=== PATIENT | female | born 1965 | race American Indian/Alaskan Native ===

== ENCOUNTER 2019-04-17 22:41 | Emergency (ER) | payer SELFPAY ==
[2019-04-17 22:57] VITALS: BP 128/83
--- NOTE | 2019-04-17 23:40 | Emergency Department Report ---
ED Lower Extremity HPI - General Chief Complaint: Extremity Injury, Lower Stated Complaint: ANKLE/FOOT PAIN Time Seen by Provider: 04/17/19 23:24 Source: patient Mode of arrival: Ambulatory Limitations: No Limitations - History of Present Illness Initial Comments: 53-year-old female presents to ED with possible left ankle sprain, sustained yesterday at work. 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 MD Complaint: ankle injury -: days(s) (1) Injury: Ankle: Left Place: work Severity: mild Worsens With: weight bearing, movement, palpation Associated Symptoms: ambulatory. denies: swelling Treatments Prior to Arrival: other (tylenol) - Related Data Previous Rx's Medication Instructions Recorded Last Taken Type Naproxen [Naprosyn] 500 mg PO BID #20 tablet 04/17/19 Unknown Rx Allergies Allergy/AdvReac Type Severity Reaction Status Date / Time No Known Allergies Allergy Unverified 04/17/19 23:08 ED Review of Systems ROS: Stated complaint: ANKLE/FOOT PAIN Other details as noted in HPI Comment: All other systems reviewed and negative Musculoskeletal: as per HPI Neurological: denies: numbness, paresthesias ED Past Medical Hx - Past Medical History Previous Medical History?: No - Surgical History Past Surgical History?: No - Social History Smoking Status: Current Every Day Smoker Substance Use Type: None - Medications Home Medications: Home Medications Medication Instructions Recorded Confirmed Last Taken Type Naproxen [Naprosyn] 500 mg PO BID #20 tablet 04/17/19 Unknown Rx ED Physical Exam - General Limitations: No Limitations General appearance: alert, in no apparent distress - Head Head exam: Present: atraumatic, normocephalic - Eye Eye exam: Present: normal appearance, PERRL, EOMI - ENT ENT exam: Present: mucous membranes moist - Neck Neck exam: Present: normal inspection - Respiratory Respiratory exam: Present: normal lung sounds bilaterally. Absent: respiratory distress - Cardiovascular Cardiovascular Exam: Present: regular rate, normal rhythm - GI/Abdominal GI/Abdominal exam: Absent: distended - Extremities Exam Extremities exam: Present: other (mild tenderness to the lateral aspect of the left ankle, range of motion is intact, no swelling present) - Neurological Exam Neurological exam: Present: alert, oriented X3. Absent: motor sensory deficit - Psychiatric Psychiatric exam: Present: normal affect, normal mood - Skin Skin exam: Present: warm, dry, intact, normal color ED Course Vital Signs 04/17/19 22:56 Temperature 97.7 F Pulse Rate 86 Respiratory 16 Rate Blood Pressure 128/83 [Right] O2 Sat by Pulse 96 Oximetry ED Lower Extremity MDM - Radiology Data Radiology results: report reviewed, image reviewed - Differential Diagnosis sprain, fracture Critical care attestation.: If time is entered above; I have spent that time in minutes in the direct care of this critically ill patient, excluding procedure time. ED Disposition Clinical Impression: Left ankle sprain Disposition: - TO HOME OR SELFCARE Is pt being admited?: No Condition: Stable Instructions: Ankle Sprain (ED) Prescriptions: Naproxen [Naprosyn] 500 mg PO BID #20 tablet Referrals: CRISTINA FERGUSON MD [Staff Physician] - 3-5 Days Time of Disposition: 23:40
--- NOTE | 2019-04-18 01:01 | XRay Report ---
LEFT ANKLE 3 VIEWS PORTABLE 2313 INDICATION: left ankle pain COMPARISON: None available. FINDINGS: Negative study Signer Name: Osmar Gonzalez MD Signed: 04/18/2019 12:57 AM Workstation Name: [id number]
== END 2019-04-17 23:55 | disposition home or self-care (01) ==
LOC: ED 22:41
DX: S93.402A Sprain of unspecified ligament of left ankle, initial encounter (principal); F17.200 Nicotine dependence, unspecified, uncomplicated; Z79.899 Other long term (current) drug therapy; X50.1XXA Overexertion from prolonged static or awkward postures, initial encounter; Y93.89 Activity, other specified; Y92.69 Other specified industrial and construction area as the place of occurrence of the external cause; Y99.8 Other external cause status
CPT/HCPCS: 99284

== ENCOUNTER 2019-07-26 13:36 | Emergency (ER) | payer OTHER ==
[2019-07-26 16:07] VITALS: BP 104/71
--- NOTE | 2019-07-26 20:39 | XRay Report ---
LEFT KNEE 3 VIEWS INDICATION / CLINICAL INFORMATION: PAIN R/T INJURY COMPARISON: None available. FINDINGS: BONES / JOINT(S): No acute fracture or subluxation. No significant arthritis. SOFT TISSUES: No significant abnormality. ADDITIONAL FINDINGS: None. Signer Name: Evelio Whitaker MD Signed: 07/26/2019 8:35 PM Workstation Name: [id number]
--- NOTE | 2019-07-26 21:52 | Emergency Department Report ---
ED Extremity Problem HPI - General Chief complaint: Extremity Injury, Lower Stated complaint: LT KNEE PAIN SLIPPED AND TWISTED Time Seen by Provider: 07/26/19 20:09 Source: patient Mode of arrival: Ambulatory Limitations: No Limitations - History of Present Illness Initial comments: 53-year-old female presents with complaints of left knee injury after a slip and fall today. She denies falling onto her knee, however states when she was standing she felt a pop in her leg and then had immediate pain. She rates her pain as 8/10 in severity. She denies any numbness/tingling. She states it is difficult to ambulate due to the pain and that pain worsens with straightening her leg. She denies any prior injuries in her left knee. MD Complaint: extremity pain -: Sudden Location: left Severity scale (0 -10): 8 Quality: sharp Improves with: immobilization Worsens with: walking Associated Symptoms: denies other symptoms - Related Data Previous Rx's Medication Instructions Recorded Last Taken Type Naproxen [Naprosyn] 500 mg PO BID #20 tablet 04/17/19 Unknown Rx Diclofenac Sodium 50 mg PO TID PRN #15 tablet. 07/26/19 Unknown Rx Allergies Allergy/AdvReac Type Severity Reaction Status Date / Time No Known Allergies Allergy Unverified 04/17/19 23:08 ED Review of Systems ROS: Stated complaint: LT KNEE PAIN SLIPPED AND TWISTED Other details as noted in HPI Comment: All other systems reviewed and negative Musculoskeletal: arthralgia ED Past Medical Hx - Past Medical History Previous Medical History?: No - Surgical History Past Surgical History?: No - Social History Smoking Status: Current Every Day Smoker Substance Use Type: None - Medications Home Medications: Home Medications Medication Instructions Recorded Confirmed Last Taken Type Naproxen [Naprosyn] 500 mg PO BID #20 tablet 04/17/19 Unknown Rx Diclofenac Sodium 50 mg PO TID PRN #15 tablet. 07/26/19 Unknown Rx ED Physical Exam - General Limitations: No Limitations General appearance: alert, in no apparent distress - Head Head exam: Present: atraumatic, normocephalic - Eye Eye exam: Present: normal appearance - Neck Neck exam: Present: full ROM - Respiratory Respiratory exam: Absent: respiratory distress - Cardiovascular Cardiovascular Exam: Present: regular rate - Expanded Lower Extremity Exam Left Knee exam: Present: full ROM, tenderness (mild above knee cap), full knee extension. Absent: swelling, abrasion, laceration, ecchymosis, deformity, crepidus, dislocation, erythema, effusion, posterior draw sign, pain/laxity with valgus, pain/laxity with varus - Back Exam Back exam: Present: normal inspection - Neurological Exam Neurological exam: Present: alert, oriented X3 - Psychiatric Psychiatric exam: Present: normal affect, normal mood - Skin Skin exam: Present: warm, dry, intact, normal color. Absent: rash ED Course Vital Signs 07/26/19 16:05 Temperature 97.7 F Pulse Rate 83 Respiratory 18 Rate Blood Pressure 104/71 O2 Sat by Pulse 100 Oximetry ED Medical Decision Making - Radiology Data Radiology results: report reviewed LEFT KNEE 3 VIEWS INDICATION / CLINICAL INFORMATION: PAIN R/T INJURY COMPARISON: None available. FINDINGS: BONES / JOINT(S): No acute fracture or subluxation. No significant arthritis. SOFT TISSUES: No significant abnormality. ADDITIONAL FINDINGS: None. - Medical Decision Making 53-year-old female presents with complaints of left knee injury after a slip and fall today. Negative anterior and posterior drawer test. He could 've at least compression test. X-ray is negative for any acute bony abnormalities. Patient's symptoms seem to be consistent with a knee sprain. Knee immobilizer provided. Patient declines crutches. Patient is nontoxic appearing and stable for discharge home with follow-up with orthopedics. Discussed strict return precautions in detail with patient who verbalizes understanding. Critical care attestation.: If time is entered above; I have spent that time in minutes in the direct care of this critically ill patient, excluding procedure time. ED Disposition Clinical Impression: Left knee sprain Qualifiers: Encounter type: initial encounter Involved ligament of knee: other ligament Qualified Code(s): S83.8X2A - Sprain of other specified parts of left knee, initial encounter Disposition: TO HOME OR SELFCARE Is pt being admited?: No Condition: Stable Instructions: Knee Sprain (ED) Prescriptions: Diclofenac Sodium 50 mg PO TID PRN #15 tablet.dr BUTLER Reason: pain Referrals: CRISTINA FERGUSON MD [Staff Physician] - 2-3 Days Forms: Work/School Release Form(ED)
[2019-07-26] MEDS ORDERED: IBUPROFEN 800 MG TAB PO ONE (22:46)
== END 2019-07-26 23:14 | disposition home or self-care (01) ==
LOC: ED 13:36
DX: S83.8X2A Sprain of other specified parts of left knee, initial encounter (principal); F17.200 Nicotine dependence, unspecified, uncomplicated; Z79.899 Other long term (current) drug therapy; W01.0XXA Fall on same level from slipping, tripping and stumbling without subsequent striking against object, initial encounter; Y93.89 Activity, other specified; Y92.89 Other specified places as the place of occurrence of the external cause; Y99.8 Other external cause status